=== PATIENT | female | born 1980 | race Two or more races ===

== ENCOUNTER 2025-05-31 12:10 | Day surgery (SDC) | payer MEDICAID, SELFPAY ==
[2025-05-31] VITALS (11 sets, daily range): BP systolic 118–172; BP diastolic 70–104; PULSE 56–85; RESP 11–23; TEMP 36.5–36.7; O2SAT 93–100; BMI 33.5
[2025-05-31 12:50] LABS: HCG Qualitative,Urine Negative
[2025-05-31] MEDS: RINGERS LACTATED 500 ML 500 ML 100 ML IV (13:52)
[2025-05-31] MEDS: MIDAZOLAM INJ 1 MG/ML VIAL 2 ML (ASD USE ONLY) 2 MG IVP (13:55)
[2025-05-31] MEDS: fentaNYL CIT INJ 50 mCg/ML AMP 2ML (ASD USE ONLY) IVP (13:59)
== END 2025-05-31 14:55 | disposition home or self-care (01) ==
PROVIDERS: Anesthesiology; PCP Family Medicine; Referring Provider Surgery; Visit Provider Surgery
PROC: 0DBE8ZX Excision of Large Intestine, Via Natural or Artificial Opening Endoscopic, Diagnostic (ICD-10-PCS; CPT 45380; principal; 2025-05-31 13:45)
DX: Z12.11 Encounter for screening for malignant neoplasm of colon (principal); R73.03 Prediabetes; G47.00 Insomnia, unspecified; E03.9 Hypothyroidism, unspecified
CPT/HCPCS: 45378; 81025; A4217; A4649; J2250; J3010; J7120